=== PATIENT | female | born 1980 | race Caucasian/White ===

== ENCOUNTER → 2017-04-28 | Outpatient (CLI) | payer OTHER ==
--- NOTE | 2017-04-28 11:00 | REP ---
Hepatobiliary scan and gallbladder ejection fraction: History: Nausea. Abdominal pain. Comparison study November 19, 2014. Technique: 6.1 mCi of technetium-99m mebrofenin was injected and sequential anterior images are acquired. 65 minutes after the mebrofenin injection, the patient consumed 8 ounces Ensure and an additional 60 minutes of imaging was acquired. Regions of interest are plotted around the gallbladder. Findings: The initial hepatocellular parenchymal uptake phase is normal and homogeneous. Intra- and extra-hepatic bile ducts and duodenum are labeled by the 10 -minute image. The gallbladder is first labeled on the 10 -minute image. There is normal washout from the liver parenchyma into the gallbladder and small intestine on subsequent images. The gallbladder ejection fraction is 90 %. Values greater than 35 % are considered normal with this technique. Impression: Normal hepatobiliary scan and normal gallbladder ejection fraction. Signed by Michael Phillips MD 04/28/2017 10:51 A
== END ==
LOC: M RAD 07:50
PROVIDERS: ATTEND Nurse Practitioner Family
DX: R11.0 Nausea (principal); R10.11 Right upper quadrant pain
CPT/HCPCS: 78227; A9537; J2805

== ENCOUNTER → 2021-06-24 | Outpatient (REF) | payer OTHER ==
[2021-06-24 14:26] LABS: BACTERIA, URINE AUTO 1+ (NEGATIVE); RBC, URINE AUTO 0 /HPF (0-3); SQUAMOUS EPITHELIAL CELL UR AU 0 /HPF (0-6); WBC, URINE AUTO 7 /HPF (0-3)
== END ==
LOC: M SMT 13:39
PROVIDERS: ATTEND Specialist
DX: N20.0 Calculus of kidney (principal)